=== PATIENT | male | born 1975 | race Caucasian/White ===

== ENCOUNTER 2018-05-18 15:09 | Inpatient (IN) | payer BC ==
[2018-05-18 15:30] VITALS: BMI 20.5
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
[2018-05-18] MEDS ORDERED: METHADONE HCL 10 MG TABLET (FOR DETOX USE ONLY) PO ONE ×2 (21:14→23:00)
[2018-05-18] MEDS ORDERED: chlordiazePOXIDE HCL 25 MG CAPSULE PO ONE (21:14)
[2018-05-18] MEDS ORDERED: ACETAMINOPHEN 325 MG TABLET (FP) PO PRN (21:14)
[2018-05-18] MEDS ORDERED: LOPERAMIDE HCL 2 MG CAPSULE PO PRN (21:14)
[2018-05-18] MEDS ORDERED: MAG HYDROX/AL HYDROX/SIMETH 30 ML UNIT-DOSE CUP PO PRN (21:14)
[2018-05-18] MEDS ORDERED: MAGNESIUM HYDROX 2400MG/30ML ORAL SUSPENSION 30 ML CUP PO PRN (21:14)
[2018-05-18] MEDS ORDERED: P-EPHED 60MG/TRIPROLIDI 2.5MG TABLET PO PRN (21:14)
[2018-05-18] MEDS ORDERED: MENTHOL/PHENOL 1 EACH UD MM PRN (21:14)
[2018-05-18] MEDS ORDERED: MAGNESIUM CITRATE 300 ML BOTTLE PO PRN (21:14)
[2018-05-18] MEDS: chlordiazePOXIDE HCL 25 MG CAPSULE PO SCH (23:04)
[2018-05-18] MEDS: CEPHALEXIN MONOHYDRATE 500 MG CAPSULE (UD) PO SCH (23:04)
[2018-05-18] MEDS: THIAMINE HCL 100 MG TABLET (FP) PO SCH (23:05)
[2018-05-18] MEDS: NICOTINE POLACRILEX 2 MG GUM BC PRN (23:21)
[2018-05-19] MEDS: MELATONIN 5 MG TABLETS PO PRN ×2 (00:29→22:06)
[2018-05-19] MEDS: chlordiazePOXIDE HCL 25 MG CAPSULE PO PRN (00:32)
[2018-05-19] MEDS: chlordiazePOXIDE HCL 25 MG CAPSULE PO SCH ×4 (06:00→22:05)
[2018-05-19] MEDS: CEPHALEXIN MONOHYDRATE 500 MG CAPSULE (UD) PO SCH ×4 (06:00→22:59)
[2018-05-19] MEDS: NICOTINE POLACRILEX 2 MG GUM BC PRN ×3 (06:14→17:19)
[2018-05-19] MEDS ORDERED: METHADONE HCL 10 MG TABLET (FOR DETOX USE ONLY) PO SCH (10:00)
[2018-05-19] MEDS: PRENATAL VITAMINS W/ FOLIC ACID TABLET (FP) PO SCH (10:24)
[2018-05-19] MEDS: NICOTINE 21 MG/24 HOURS TOPICAL PATCH TD SCH (10:24)
[2018-05-19] MEDS: PANTOPRAZOLE 40 MG TABLET (FP) PO SCH (10:24)
[2018-05-19 10:31] LABS: HEMATOCRIT 36.8 % (35.4-49); MCH 29.5 pg (25.7-33.7); MCHC 35.4 g/dl (32.0-35.9); MEAN CELL VOLUME 83.5 fl (80-96); MEAN PLT VOLUME 7.1 fl (7.5-11.1); PLATELET COUNT 361 K/MM3 (134-434); RBC 4.41 M/mm3 (4.00-5.60); RDW 13.8 % (11.9-15.9); WHITE BLOOD COUNT 5.2 K/mm3 (4.0-10.0)
[2018-05-19 10:48] LABS: ALBUMIN 3.4 g/dl (3.4-5.0); ALK PHOS 84 U/L (45-117); ANION GAP 8 MMOL/L (8-16); BILIRUBIN,TOTAL 0.2 mg/dL (0.2-1); BLOOD UREA NITROGEN 18 mg/dL (7-18); CALCIUM 8.8 mg/dL (8.5-10.1); CHLORIDE 106 mmol/L (98-107); CO2 27 mmol/L (21-32); CREATININE 0.9 mg/dL (0.55-1.3); GLUCOSE,RANDOM 103 mg/dL (74-106); POTASSIUM 4.2 mmol/L (3.5-5.1); SGOT/AST 12 U/L (15-37); SGPT/ALT 17 U/L (13-61); SODIUM 140 mmol/L (136-145); TOT PROT 6.9 g/dl (6.4-8.2)
[2018-05-19 13:19] LABS: URINE APPEARANCE TURBID; URINE BILIRUBIN NEGATIVE (<2.0 mg/dL); URINE COLOR YELLOW; URINE GLUCOSE (UA) NEGATIVE (NEGATIVE); URINE KETONE NEGATIVE (NEGATIVE); URINE LEUK ESTERASE NEGATIVE (NEGATIVE); URINE NITRITE NEGATIVE (NEGATIVE); URINE PROTEIN NEGATIVE (NEGATIVE); URINE UROBILINOGEN NEGATIVE mg/dL (0.2-1.0)
--- NOTE | 2018-05-19 13:27 | PN ---
S CIWA - CIWA Score Nausea/Vomitin Muscle Tremors: 2 Anxiety: 2 Agitation: 2 Paroxysmal Sweats: 2 Orientation: 0-Oriented Tacttile Disturbances: 2-Mild Itch/Numbness/Burn Auditory Disturbances: 2-Mild Harshness/Frighten Visual Disturbances: 1-Very Mild Sensitivity Headache: 1-Very Mild CIWA-Ar Total Score: 16 [facility] COWS - Scale Resting Pulse: 0= [place] 80 or Below Sweatin= Chills/Flushing Restless Observation: 1= Difficult to Sit Still Pupil Size: 0= Normal to Room Light Bone or Joint Aches: 2= Severe Diffuse Aches Runny Nose/ Eye Tearin= Runny Nose/Eyes GI Upset > 30mins: 2= Nausea/Diarrhea Tremor Observation of Outstretched Hands: 2= Slight Tremor Visible Yawning Observation: 1= 1-2x During Session Anxiety or Irritability: 2=Irritable/Anxious Goose Flesh Skin: 0=Smooth Skin COWS Score: 13 S Progress Note (SOAP) Subjective: Generalized aches, diarrhea,chills and interrupted sleep Objective: 05/19/18 13:26 Vital Signs 05/19/18 05/19/18 06:47 09:23 Temperature 97.5 F L 97.7 F Pulse Rate 70 71 Respiratory 18 18 Rate Blood Pressure 117/72 130/70 Laboratory Last Values WBC 5.2 K/mm3 (4.0-10.0) 05/19/18 08:00 RBC 4.41 M/mm3 (4.00-5.60) 05/19/18 08:00 Hgb 13.0 GM/dL (11.7-16.9) 05/19/18 08:00 Hct 36.8 % (35.4-49) 05/19/18 08:00 MCV 83.5 fl (80-96) 05/19/18 08:00 MCH 29.5 pg (25.7-33.7) 05/19/18 08:00 MCHC 35.4 g/dl (32.0-35.9) 05/19/18 08:00 RDW 13.8 % (11.9-15.9) 05/19/18 08:00 Plt Count 361 K/MM3 (134-434) 05/19/18 08:00 MPV 7.1 fl (7.5-11.1) L 05/19/18 08:00 Sodium 140 mmol/L (136-145) 05/19/18 08:00 Potassium 4.2 mmol/L (3.5-5.1) 05/19/18 08:00 Chloride 106 mmol/L (98-107) 05/19/18 08:00 Carbon Dioxide 27 mmol/L (21-32) 05/19/18 08:00 Anion Gap 8 MMOL/L (8-16) 05/19/18 08:00 BUN 18 mg/dL (7-18) 05/19/18 08:00 Creatinine 0.9 mg/dL (0.55-1.3) 05/19/18 08:00 Creat Clearance w eGFR > 60 (>60) 05/19/18 08:00 Random Glucose 103 mg/dL (74-106) 05/19/18 08:00 Calcium 8.8 mg/dL (8.5-10.1) 05/19/18 08:00 Total Bilirubin 0.2 mg/dL (0.2-1) 05/19/18 08:00 AST 12 U/L (15-37) L 05/19/18 08:00 ALT 17 U/L (13-61) 05/19/18 08:00 Alkaline Phosphatase 84 U/L (45-117) 05/19/18 08:00 Total Protein 6.9 g/dl (6.4-8.2) 05/19/18 08:00 Albumin 3.4 g/dl (3.4-5.0) 05/19/18 08:00 Urine Color Yellow 05/19/18 09:20 Urine Appearance Turbid 05/19/18 09:20 Urine pH 6.0 (5.0-8.0) 05/19/18 09:20 Ur Specific [place] 1.024 (1.010-1.035) 05/19/18 09:20 Urine Protein Negative (NEGATIVE) 05/19/18 09:20 Urine Glucose (UA) Negative (NEGATIVE) 05/19/18 09:20 Urine Ketones Negative (NEGATIVE) 05/19/18 09:20 Urine Blood Negative (NEGATIVE) 05/19/18 09:20 Urine Nitrite Negative (NEGATIVE) 05/19/18 09:20 Urine Bilirubin Negative (<2.0 mg/dL) 05/19/18 09:20 Urine Urobilinogen Negative mg/dL (0.2-1.0) 05/19/18 09:20 Ur Leukocyte Esterase Negative (NEGATIVE) 05/19/18 09:20 Labs noted, no panic values Assessment: 05/19/18 13:26 Withdrawal sx Plan: Continue detox
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
--- NOTE | 2018-05-19 16:52 | EKG ---
Test Reason : Blood Pressure : / mmHG Vent. Rate : 082 BPM Atrial Rate : 082 BPM P-R Int : 120 ms QRS Dur : 092 ms QT Int : 372 ms P-R-T Axes : 068 044 049 degrees QTc Int : 434 ms NORMAL SINUS RHYTHM NORMAL ECG NO PREVIOUS ECGS AVAILABLE Confirmed by Liudmila Andrade ([id number]) on 05/19/2018 4:52:11 PM Referred By: Sandra WATT Confirmed By:Liudmila Andrade
[2018-05-19] MEDS: IBUPROFEN 400 MG TABLET (FP) PO PRN (17:55)
[2018-05-19] MEDS: THIAMINE HCL 100 MG TABLET (FP) PO SCH (22:05)
[2018-05-19] MEDS ORDERED: traZODone HCL 100 MG TABLET (FP) PO SCH (23:00)
[2018-05-20] MEDS: chlordiazePOXIDE HCL 25 MG CAPSULE PO PRN (02:24)
[2018-05-20] MEDS: chlordiazePOXIDE HCL 25 MG CAPSULE PO SCH ×3 (05:58→17:22)
[2018-05-20] MEDS: CEPHALEXIN MONOHYDRATE 500 MG CAPSULE (UD) PO SCH ×3 (05:58→17:22)
[2018-05-20] MEDS ORDERED: METHADONE HCL 5 MG TABLET (FOR DETOX USE ONLY) PO SCH (10:00)
[2018-05-20] MEDS: NICOTINE 21 MG/24 HOURS TOPICAL PATCH TD SCH (10:16)
[2018-05-20] MEDS: PRENATAL VITAMINS W/ FOLIC ACID TABLET (FP) PO SCH (10:16)
[2018-05-20] MEDS: NICOTINE POLACRILEX 2 MG GUM BC PRN ×2 (10:17→15:47)
[2018-05-20] MEDS: PANTOPRAZOLE 40 MG TABLET (FP) PO SCH (10:17)
--- NOTE | 2018-05-20 14:35 | PN ---
[facility] CIWA - CIWA Score Nausea/Vomitin-Mild Nausea/No Vomiting Muscle Tremors: 1-None Visible, but [place] Anxiety: 3 Agitation: 5 Paroxysmal Sweats: 1-Minimal Palms Moist Orientation: 0-Oriented Tacttile Disturbances: 0-None Auditory Disturbances: 0-None Visual Disturbances: 0-None Headache: 0-None Present CIWA-Ar Total Score: 11 S COWS - Scale Resting Pulse: 1= [place] 81-100 Sweatin= Chills/Flushing Restless Observation: 3= Extraneous Movement Pupil Size: 0= Normal to Room Light Bone or Joint Aches: 1= Mild Discomfort Runny Nose/ Eye Tearin= None GI Upset > 30mins: 0= None Tremor Observation of Outstretched Hands: 0= None Yawning Observation: 0= None Anxiety or Irritability: 2=Irritable/Anxious Goose Flesh Skin: 3=Piloerection COWS Score: 11 [facility] Progress Note (SOAP) Subjective: pt agitated today- using both a and b bed in room, says he can't sleep at night and so sleeping during the day, agitated when awoken during rounds O: Vital Signs - 24 hr 05/19/18 05/19/18 05/20/18 17:40 22:17 00:30 Temperature 97.3 F L 97.3 F L Pulse Rate 73 99 H Respiratory 16 18 18 Rate Blood Pressure 118/70 133/91 05/20/18 05/20/18 07:22 09:33 Temperature 96.1 F L 97.3 F L Pulse Rate 72 89 Respiratory 18 16 Rate Blood Pressure 140/75 121/52 L Laboratory Tests 05/19/18 05/19/18 05/19/18 08:00 08:00 08:00 WBC 5.2 RBC 4.41 Hgb 13.0 Hct 36.8 MCV 83.5 MCH 29.5 MCHC 35.4 RDW 13.8 Plt Count 361 MPV 7.1 L Sodium 140 Potassium 4.2 Chloride 106 Carbon Dioxide 27 Anion Gap 8 BUN 18 Creatinine 0.9 Creat Clearance w eGFR > 60 Random Glucose 103 Calcium 8.8 Total Bilirubin 0.2 AST 12 L ALT 17 Alkaline Phosphatase 84 Total Protein 6.9 Albumin 3.4 Urine Color Urine Appearance Urine pH Ur Specific [place] Urine Protein Urine Glucose (UA) Urine Ketones Urine Blood Urine Nitrite Urine Bilirubin Urine Urobilinogen Ur Leukocyte Esterase RPR Titer HIV 1&2 Antibody Screen Negative HIV P24 Antigen Negative 05/19/18 05/19/18 08:00 09:20 WBC RBC Hgb Hct MCV MCH MCHC RDW Plt Count MPV Sodium Potassium Chloride Carbon Dioxide Anion Gap BUN Creatinine Creat Clearance w eGFR Random Glucose Calcium Total Bilirubin AST ALT Alkaline Phosphatase Total Protein Albumin Urine Color Yellow Urine Appearance Turbid Urine pH 6.0 Ur Specific [place] 1.024 Urine Protein Negative Urine Glucose (UA) Negative Urine Ketones Negative Urine Blood Negative Urine Nitrite Negative Urine Bilirubin Negative Urine Urobilinogen Negative Ur Leukocyte Esterase Negative RPR Titer Nonreactive HIV 1&2 Antibody Screen HIV P24 Antigen a/p: continue alcohol and opioid detox protocol: pt doing well.
[2018-05-20 17:03] VITALS: BP 103/61; PULSE 106; TEMP 98.3
[2018-05-20] MEDS: IBUPROFEN 400 MG TABLET (FP) PO PRN (17:36)
--- NOTE | 2018-05-20 19:27 | PN ---
[facility] Progress Note Note: patient would like to leave for personal issue,could not complete detox,stated has to see the daughter before she leave for the college, all attempts to convince patient to stay with no avail by me,nurse and counselor , explained to patient for the chance of relapsing is high,advise to go to nearest emergency room if any emergency problem, patient understood,signed release ama,left the unit in stable condition,no suicidal,no homicidal ideation, keflex 500 mgs po q 6hrs for 7days,e prescription to patient pharmacy
--- NOTE | 2018-05-20 19:42 | DS ---
[facility] Detox Discharge Summary Admission Date: 05/18/18 Discharge Date: 05/20/18 - History Present History: Alcohol Dependence, Opioid Dependence Additional Comments: patient left ama as mentioned in the progress note Pertinent Past History: cellulitis left leg - Physical Exam Results Vital Signs: Vital Signs Temperature 98.3 F 05/20/18 17:02 Pulse Rate 106 H 05/20/18 17:02 Respiratory Rate 18 05/20/18 17:02 Blood Pressure 103/61 05/20/18 17:02 O2 Sat by Pulse Oximetry (%) Pertinent Admission Physical Exam Findings: withdrawal signs and symptom Vital Signs Temperature 98.3 F 05/20/18 17:02 Pulse Rate 106 H 05/20/18 17:02 Respiratory Rate 18 05/20/18 17:02 Blood Pressure 103/61 05/20/18 17:02 O2 Sat by Pulse Oximetry (%) Laboratory Last Values WBC 5.2 K/mm3 (4.0-10.0) 05/19/18 08:00 RBC 4.41 M/mm3 (4.00-5.60) 05/19/18 08:00 Hgb 13.0 GM/dL (11.7-16.9) 05/19/18 08:00 Hct 36.8 % (35.4-49) 05/19/18 08:00 MCV 83.5 fl (80-96) 05/19/18 08:00 MCH 29.5 pg (25.7-33.7) 05/19/18 08:00 MCHC 35.4 g/dl (32.0-35.9) 05/19/18 08:00 RDW 13.8 % (11.9-15.9) 05/19/18 08:00 Plt Count 361 K/MM3 (134-434) 05/19/18 08:00 MPV 7.1 fl (7.5-11.1) L 05/19/18 08:00 Sodium 140 mmol/L (136-145) 05/19/18 08:00 Potassium 4.2 mmol/L (3.5-5.1) 05/19/18 08:00 Chloride 106 mmol/L (98-107) 05/19/18 08:00 Carbon Dioxide 27 mmol/L (21-32) 05/19/18 08:00 Anion Gap 8 MMOL/L (8-16) 05/19/18 08:00 BUN 18 mg/dL (7-18) 05/19/18 08:00 Creatinine 0.9 mg/dL (0.55-1.3) 05/19/18 08:00 Creat Clearance w eGFR > 60 (>60) 05/19/18 08:00 Random Glucose 103 mg/dL (74-106) 05/19/18 08:00 Calcium 8.8 mg/dL (8.5-10.1) 05/19/18 08:00 Total Bilirubin 0.2 mg/dL (0.2-1) 05/19/18 08:00 AST 12 U/L (15-37) L 05/19/18 08:00 ALT 17 U/L (13-61) 05/19/18 08:00 Alkaline Phosphatase 84 U/L (45-117) 05/19/18 08:00 Total Protein 6.9 g/dl (6.4-8.2) 05/19/18 08:00 Albumin 3.4 g/dl (3.4-5.0) 05/19/18 08:00 Urine Color Yellow 05/19/18 09:20 Urine Appearance Turbid 05/19/18 09:20 Urine pH 6.0 (5.0-8.0) 05/19/18 09:20 Ur Specific [place] 1.024 (1.010-1.035) 05/19/18 09:20 Urine Protein Negative (NEGATIVE) 05/19/18 09:20 Urine Glucose (UA) Negative (NEGATIVE) 05/19/18 09:20 Urine Ketones Negative (NEGATIVE) 05/19/18 09:20 Urine Blood Negative (NEGATIVE) 05/19/18 09:20 Urine Nitrite Negative (NEGATIVE) 05/19/18 09:20 Urine Bilirubin Negative (<2.0 mg/dL) 05/19/18 09:20 Urine Urobilinogen Negative mg/dL (0.2-1.0) 05/19/18 09:20 Ur Leukocyte Esterase Negative (NEGATIVE) 05/19/18 09:20 RPR Titer Nonreactive (NONREACTIVE) 05/19/18 08:00 HIV 1&2 Antibody Screen Negative 05/19/18 08:00 HIV P24 Antigen Negative 05/19/18 08:00 - Medication Discharge Medications: Ambulatory Orders Omeprazole 20 mg PO DAILY 05/18/18 Paroxetine HCl [Paxil -] 20 mg PO DAILY 05/18/18 Valacyclovir HCl [Valtrex -] 500 mg PO BID 05/18/18 - AMA Did Patient Leave Against Medical Advice: Yes
[2018-05-20] MEDS ORDERED: chlordiazePOXIDE 5 MG CAPSULE PO SCH (23:00)
[2018-05-21] MEDS ORDERED: CEPHALEXIN MONOHYDRATE 500 MG CAPSULE (UD) PO SCH
[2018-05-21] MEDS ORDERED: chlordiazePOXIDE HCL 10 MG CAPSULE PO SCH (23:00)
[2018-05-22] MEDS ORDERED: METHADONE HCL 10 MG TABLET (FOR DETOX USE ONLY) PO SCH (10:00)
[2018-05-23] MEDS ORDERED: METHADONE HCL 5 MG TABLET (FOR DETOX USE ONLY) PO SCH (06:00)
== END 2018-05-20 19:10 | disposition left against medical advice (07) | DRG 894 ==
LOC: YASAS 15:09 → Y6N 19:50
PROVIDERS: ADMIT Neuromusculoskeletal Medicine & OMM; ATTEND Neuromusculoskeletal Medicine & OMM
PROC: HZ2ZZZZ Detoxification Services for Substance Abuse Treatment (ICD-10-PCS; principal; 2018-05-18)
DX: F11.23 Opioid dependence with withdrawal (principal); F14.20 Cocaine dependence, uncomplicated; L03.116 Cellulitis of left lower limb; F10.230 Alcohol dependence with withdrawal, uncomplicated; F17.210 Nicotine dependence, cigarettes, uncomplicated; F19.24 Other psychoactive substance dependence with psychoactive substance-induced mood disorder; G47.00 Insomnia, unspecified; R01.1 Cardiac murmur, unspecified; M54.5 Low back pain; G89.29 Other chronic pain
CPT/HCPCS: 36415; 80053; 81003; 85027; 86593; 87389; 93005; 93010

== ENCOUNTER 2020-05-13 08:47 | Inpatient (IN) | payer BC ==
[2020-05-13] MEDS ORDERED: ACETAMINOPHEN 325 MG TABLET (FP) PO PRN ×2 (09:36)
[2020-05-13] MEDS ORDERED: MENTHOL/PHENOL 1 EACH UD MM PRN (09:36)
[2020-05-13] MEDS ORDERED: METHADONE HCL 10 MG TABLET (FOR DETOX USE ONLY) PO ONE (09:36)
[2020-05-13] MEDS ORDERED: MAG HYDROX/AL HYDROX/SIMETH 30 ML UNIT-DOSE CUP PO PRN (09:36)
[2020-05-13] MEDS ORDERED: ONDANSETRON *ODT* 4 MG TABLET SL PRN (09:36)
[2020-05-13] MEDS ORDERED: MAGNESIUM CITRATE 300 ML BOTTLE PO PRN (09:36)
[2020-05-13] MEDS ORDERED: MAGNESIUM HYDROX 2400MG/30ML ORAL SUSPENSION 30 ML CUP PO PRN (09:36)
[2020-05-13] MEDS ORDERED: BISMUTH SUBSALICYLATE 262 MG/15 ML BTL PO PRN (09:36)
[2020-05-13] MEDS ORDERED: IBUPROFEN 400 MG TABLET (FP) PO PRN (09:36)
[2020-05-13 09:50] VITALS: BMI 27.1
[2020-05-13] MEDS: diazePAM 5 MG TABLET PO SCH ×3 (11:09→22:29)
[2020-05-13] MEDS: PRENATAL VITAMINS W/ FOLIC ACID TABLET (FP) PO SCH (11:11)
[2020-05-13] MEDS: NICOTINE 21 MG/24 HOURS TOPICAL PATCH TD SCH (11:11)
[2020-05-13] MEDS: hydrOXYzine PAMOATE 25 MG CAPSULE (FP) PO SCH ×2 (11:11→14:06)
[2020-05-13 13:53] LABS: HEMATOCRIT 48.5 % (35.4-49); HEMOGLOBIN 16.5 GM/dL (11.7-16.9); MCH 30.2 pg (25.7-33.7); MCHC 34.1 g/dl (32.0-35.9); MEAN CELL VOLUME 88.7 fl (80-96); PLATELET COUNT 268 K/MM3 (134-434); RBC 5.47 M/mm3 (4.00-5.60); RDW 13.3 % (11.9-15.9); WHITE BLOOD COUNT 7.2 K/mm3 (4.0-10.0)
[2020-05-13 14:01] LABS: CALCIUM 8.8 mg/dL (8.5-10.1)
[2020-05-13 14:02] LABS: ALBUMIN 3.6 g/dl (3.4-5.0); BLOOD UREA NITROGEN 21.8 mg/dL (7-18)
[2020-05-13 14:05] LABS: CREATININE 1.1 mg/dL (0.55-1.3)
[2020-05-13 14:07] LABS: BILIRUBIN,TOTAL 0.5 mg/dL (0.2-1); TOT PROT 6.6 g/dl (6.4-8.2)
[2020-05-13] MEDS: diazePAM 5 MG TABLET PO PRN (20:26)
[2020-05-13] MEDS: THIAMINE HCL 100 MG TABLET (FP) PO SCH (22:29)
[2020-05-13] MEDS: MELATONIN 5 MG TABLETS PO SCH (22:29)
[2020-05-14] MEDS: diazePAM 5 MG TABLET PO PRN ×2 (01:18→14:09)
[2020-05-14] MEDS: METHOCARBAMOL 500 MG TABLET PO PRN ×2 (01:18→10:05)
[2020-05-14] MEDS: diazePAM 5 MG TABLET PO SCH ×4 (05:27→22:53)
[2020-05-14] MEDS ORDERED: METHADONE HCL 10 MG TABLET (FOR DETOX USE ONLY) ONE (09:06)
[2020-05-14] MEDS ORDERED: METHADONE HCL 5 MG TABLET (FOR DETOX USE ONLY) ONE (09:07)
[2020-05-14] MEDS ORDERED: METHADONE (DETOX) 20 MG, METHADONE (DETOX) 5 MG PO ONE (10:00)
[2020-05-14] MEDS: PRENATAL VITAMINS W/ FOLIC ACID TABLET (FP) PO SCH (10:03)
[2020-05-14] MEDS: NICOTINE 21 MG/24 HOURS TOPICAL PATCH TD SCH (10:07)
[2020-05-14] MEDS: cloNIDine HCL 0.1 MG TABLET PO PRN (14:09)
[2020-05-14] MEDS: NICOTINE POLACRILEX 2 MG GUM BUC PRN ×2 (15:23→18:30)
[2020-05-14] MEDS: MELATONIN 5 MG TABLETS PO SCH (22:53)
[2020-05-14] MEDS: THIAMINE HCL 100 MG TABLET (FP) PO SCH (22:54)
[2020-05-15] MEDS: hydrOXYzine PAMOATE 25 MG CAPSULE (FP) PO PRN ×2 (00:27→20:19)
[2020-05-15] MEDS: diazePAM 5 MG TABLET PO PRN ×4 (01:05→23:56)
[2020-05-15] MEDS: diazePAM 5 MG TABLET PO SCH ×3 (05:17→22:13)
[2020-05-15] MEDS ORDERED: METHADONE HCL 10 MG TABLET (FOR DETOX USE ONLY) PO ONE (10:00)
[2020-05-15] MEDS: PRENATAL VITAMINS W/ FOLIC ACID TABLET (FP) PO SCH (10:16)
[2020-05-15] MEDS: NICOTINE 21 MG/24 HOURS TOPICAL PATCH TD SCH (10:16)
[2020-05-15] MEDS: cloNIDine HCL 0.1 MG TABLET PO PRN ×2 (10:58→22:15)
[2020-05-15] MEDS: NICOTINE POLACRILEX 2 MG GUM BUC PRN ×2 (14:05→17:56)
[2020-05-15] MEDS: METHOCARBAMOL 500 MG TABLET PO PRN (20:19)
[2020-05-15] MEDS: THIAMINE HCL 100 MG TABLET (FP) PO SCH (22:13)
[2020-05-15] MEDS: MELATONIN 5 MG TABLETS PO SCH (22:13)
[2020-05-16] MEDS ORDERED: MELATONIN 5 MG TABLETS PO SCH (00:52)
[2020-05-16] MEDS ORDERED: MELATONIN 1 MG TABLET PO ONE (00:52)
[2020-05-16] MEDS: hydrOXYzine PAMOATE 25 MG CAPSULE (FP) PO PRN (01:13)
[2020-05-16] MEDS ORDERED: diazePAM 5 MG TABLET PO SCH (06:00)
[2020-05-16] MEDS ORDERED: METHADONE HCL 10 MG TABLET (FOR DETOX USE ONLY) ONE (08:44)
[2020-05-16] MEDS ORDERED: METHADONE HCL 5 MG TABLET (FOR DETOX USE ONLY) ONE (08:44)
[2020-05-16] MEDS: PRENATAL VITAMINS W/ FOLIC ACID TABLET (FP) PO SCH (09:31)
[2020-05-16] MEDS: NICOTINE 21 MG/24 HOURS TOPICAL PATCH TD SCH (09:33)
[2020-05-16 09:57] VITALS: BP 132/89; PULSE 67; TEMP 97.7
[2020-05-16] MEDS ORDERED: METHADONE (DETOX) 10 MG, METHADONE (DETOX) 5 MG PO ONE (10:00)
[2020-05-17] MEDS ORDERED: diazePAM 5 MG TABLET PO ONE (06:00)
[2020-05-17] MEDS ORDERED: METHADONE HCL 10 MG TABLET (FOR DETOX USE ONLY) PO ONE (10:00)
[2020-05-18] MEDS ORDERED: METHADONE HCL 5 MG TABLET (FOR DETOX USE ONLY) PO ONE (06:00)
== END 2020-05-16 13:05 | disposition left against medical advice (07) | DRG 894 ==
LOC: YASAS 08:47 → Y3N 10:12
PROVIDERS: ADMIT Allergy & Immunology; ATTEND Allergy & Immunology
PROC: HZ2ZZZZ Detoxification Services for Substance Abuse Treatment (ICD-10-PCS; principal; 2020-05-13)
DX: F11.23 Opioid dependence with withdrawal (principal); U07.1 COVID-19; F14.20 Cocaine dependence, uncomplicated; F13.230 Sedative, hypnotic or anxiolytic dependence with withdrawal, uncomplicated; F17.210 Nicotine dependence, cigarettes, uncomplicated; F19.24 Other psychoactive substance dependence with psychoactive substance-induced mood disorder; F32.9 Major depressive disorder, single episode, unspecified; G47.00 Insomnia, unspecified; K21.9 Gastro-esophageal reflux disease without esophagitis; M50.20 Other cervical disc displacement, unspecified cervical region; M51.26 Other intervertebral disc displacement, lumbar region; M54.5 Low back pain; G89.29 Other chronic pain; R01.1 Cardiac murmur, unspecified; Z98.890 Other specified postprocedural states; Z91.19 Patient's noncompliance with other medical treatment and regimen; Z56.0 Unemployment, unspecified; Z59.0 Homelessness
CPT/HCPCS: 36415; 80053; 85027; 86780; 87086; 87491; 87591; 87661; C9803; J0735; Q0162; U0003